=== PATIENT | male | born 1960 | race Caucasian/White ===

== ENCOUNTER 2017-02-09 05:33 | Day surgery (SDC) | payer BC ==
[~2017-02-09 05:33] MED LIST: IBUPROFEN600 M1 PO; LINZESS290 MC1 PO; REMICADE100 MG IV; TAMSULOSIN HCL0.4 M1 PO; TREXALL PO
== END 2017-02-09 13:00 ==
LOC: SHSC 05:33 → ORW 07:26 → PACU 09:05 → SHSC 09:50
PROC: 0YUA4JZ Supplement Bilateral Inguinal Region with Synthetic Substitute, Percutaneous Endoscopic Approach (ICD-10-PCS; principal; 2017-02-09)
PROC: 8E0W4CZ Robotic Assisted Procedure of Trunk Region, Percutaneous Endoscopic Approach (ICD-10-PCS; 2017-02-09)
DX: K40.20 Bilateral inguinal hernia, without obstruction or gangrene, not specified as recurrent (principal); M06.9 Rheumatoid arthritis, unspecified; K59.09 Other constipation; Z79.899 Other long term (current) drug therapy; Z98.890 Other specified postprocedural states
CPT/HCPCS: J0690; J1170; J2795